=== PATIENT | female | born 1935 | race Asian ===

== ENCOUNTER 2021-04-29 12:07 | Inpatient (IN) | payer MEDICAID ==
[~2021-04-29] VITALS: Ht 137.2 cm; Wt 47.8 kg
[2021-04-29 12:18] VITALS: BP 125/56
[2021-04-29] MEDS ORDERED: NAPROSYN500 M1 PO (12:23)
[2021-04-29] MEDS ORDERED: OMEPRAZOLE40 MG PO (12:24)
[2021-04-29] MEDS ORDERED: ZESTRIL40 MG PO (12:24)
[2021-04-29] MEDS ORDERED: CHILDREN'S ASPI81 MG PO (12:24)
[2021-04-29] MEDS ORDERED: NEURONTIN300 MG PO (12:24)
[2021-04-29] MEDS ORDERED: VITAMIN D250 MCG PO (12:25)
[2021-04-29] MEDS ORDERED: DILTIAZEM ER300 M2 PO (12:25)
[2021-04-29] MEDS ORDERED: LIPITOR 40 MG T40 M1 PO (12:25)
[2021-04-29 13:07] LABS: ABSOLUTE LYMPHOCYTES 1.5 thou/uL (0.8-5.3); ABSOLUTE MONOCYTES 0.5 thou/uL (0.0-1.2); ABSOLUTE NEUTROPHILS 4.8 thou/uL (1.6-8.1); BASOPHILS 0.5 %; EOSINOPHILS 0.1 %; HEMATOCRIT 41.1 % (37.0-47.0); HEMOGLOBIN 14.5 gm/dL (12.0-15.0); LYMPHOCYTES 21.5 %; MCH 33.5 pg (26.0-34.0); MCHC 35.3 g/dL (28.0-37.0); MCV 94.8 fL (80.0-100.0); MONOCYTES 7.8 %; MPV 6.6 fl. (7.2-11.1); NUCLEATED RBCS 0 /100WBC; PLATELET COUNT* 240 thou/uL (150-400); POLYS 70.1 %; RBC 4.33 mil/uL (4.20-5.00); RDW-CV 14.6 % (10.5-14.5); WBC 6.9 thou/uL (4.0-11.0)
[2021-04-29 13:15] LABS: CALCIUM 9.8 mg/dL (8.5-10.1); CREATININE 0.7 mg/dL (0.6-1.3); POTASSIUM 3.1 mmol/L (3.5-5.1)
[2021-04-29 13:20] LABS: ALBUMIN 3.7 g/dL (3.4-5.0); TOTAL BILIRUBIN 0.5 mg/dL (<0.1-1.0); TOTAL PROTEIN 7.2 g/dL (6.4-8.2)
[2021-04-29 16:15] VITALS: BP 130/61
--- NOTE | 2021-04-29 16:34 | EKG ---
[place] [address] ELECTROCARDIOGRAM REPORT Name: LIDIA PARKER Room: [address] ADM IN M.R.#: [id number] Admission: 04/29/21 Attend Phys: Armando Varela Discharge: Date of : 35 Date of Service: 04/29/21 1235 Report #: [id number] THIS REPORT FOR: //name// [facility] [place] ED Test Date: 2021-04-29 Test Time: 12:35:33 Pat Name: LIDIA PARKER Department: Room: [facility] Gender: F School Attendance Secretary: KHOI : 1935 Requested By: Dash Medina Order Number: [id number] MD: Ar Domingo Measurements Intervals [place] Rate: 77 P: -52 RI: 185 QRS: 24 QRSD: 83 T: 2 QT: 397 QTc: 450 Interpretive Statements Sinus or ectopic atrial rhythm Minimal ST depression, anterolateral leads Baseline wander in lead(s) V1 No previous ECG available for comparison Electronically Signed On 04-29-2021 16:34:18 CDT by Ar Domingo [email or web address] <ELECTRONICALLY SIGNED> By: Ar Domingo MD, [facility] 04/29/21 1634 1235 1235 Ar Domingo MD, [facility] /EPI
[2021-04-29 17:00] VITALS: BP 115/93
[2021-04-29 22:31] LABS: CHOLESTEROL 171 mg/dL (<200); HDL CHOLESTEROL 68 mg/dL (>40); LDL CHOLESTEROL 86 mg/dL (<100); TC:HDL 2.5 Ratio (Not establshd); TRIGLYCERIDE 85 mg/dL (<150); VLDL 17 mg/dL (<40)
[2021-04-29 22:33] LABS: SERUM ASSESSMENT Slight Lipemia
[2021-04-30 00:36] VITALS: BP 122/65
[2021-04-30 04:13] VITALS: BP 129/61
[2021-04-30 04:46] LABS: HEMATOCRIT 39.7 % (37.0-47.0); HEMOGLOBIN 13.7 gm/dL (12.0-15.0); MCH 33.6 pg (26.0-34.0); MCHC 34.7 g/dL (28.0-37.0); MCV 96.9 fL (80.0-100.0); MPV 6.7 fl. (7.2-11.1); RBC 4.09 mil/uL (4.20-5.00); RDW-CV 14.4 % (10.5-14.5); WBC 5.6 thou/uL (4.0-11.0)
[2021-04-30 04:55] LABS: CALCIUM 8.7 mg/dL (8.5-10.1); CREATININE 0.5 mg/dL (0.6-1.3)
[2021-04-30 05:06] LABS: APTT 24.4 Seconds (25.0-31.3); INR 0.9; PROTIME 9.9 Seconds (9.20-11.50)
[2021-04-30 08:00] VITALS: BP 138/72
[2021-04-30 12:00] VITALS: BP 147/78
--- NOTE | 2021-04-30 13:23 | 2DMMODE ---
[place] [address] 2 D/M-MODE ECHOCARDIOGRAM Name: LIDIA PAKRER Room: [address] IN [facility]#: [id number] Admission: 04/29/21 Attend Phys: Armando Varela Discharge: Date of : 35 Date of Service: 04/30/21 1323 Report #: [id number] THIS REPORT FOR: cc: Physician not on staff Physician not on staff Ar Domingo MD [facility] ~ APPROVED REPORT Study performed: 04/30/2021 11:52:50 EXAM: Comprehensive 2D, Doppler, and color-flow Echocardiogram Patient Location: In-Patient Room #: [facility] Status: routine BSA: 1.36 HR: 74 bpm BP: 129/61 mmHg Rhythm: NSR Other Information Study Quality: Good Indications CVA/TIA Echo Enhancing Agent Indication: Rule out Shunt Agent(s) / Amount(s) Used: Agitated Saline 10 cc 2D Dimensions IVSd: 8.49 (7-11mm) LVOT Diam: 17.26 (18-24mm) LVDd: 46.46 mm PWd: 8.81 (7-11mm) Ascending Ao: 32.56 (22-36mm) LVDs: 30.86 (25-40mm) Aortic Root: 32.70 mm Volumes Left Atrial Volume (Systole) LA ESV Index: 22.20 mL/m2 Aortic Valve AoV Peak Rich.: 2.12 m/s AO Peak Gr.: 17.95 mmHg LVOT Max P.05 mmHg AO Mean Gr.: 10.36 mmHg LVOT Mean P.66 [place] [address] 2 D/M-MODE ECHOCARDIOGRAM Name: LIDIA PARKER KATIE Room: [address] IN [facility]#: [id number] Admission: 04/29/21 Attend Phys: Armando Varela Discharge: Date of : 35 Date of Service: 04/30/21 1323 Report #: [id number] LVOT Max V: 2.24 m/s AO V2 VTI: 48.32 cm LVOT Mean V: 1.60 m/s AMEE (VTI): 2.09 cm2 LVOT V1 VTI: 43.09 cm AI [place]: 2.66 m/s2 AI PHT: 462.86 ms Mitral Valve MV Mean Gr.: 4.36 mmHg MV [place]. Time: 337.76 ms MV PHT: 97.95 ms MVA (PHT): 2.25 cm2 TDI Medial E' Rich.: 0.06 m/s Lateral E' Rich.: 0.06 m/s Pulmonary Valve PV Peak Rich.: 1.14 m/s PV Peak Gr.: 5.22 mmHg Tricuspid Valve RAP Estimate: 5.00 mmHg TR Peak Gr.: 24.02 mmHg RVSP: 29.00 mmHg PA Pressure: 29.00 mmHg Left Ventricle The left ventricle is normal size. There is normal LV segmental wall motion. There is normal left ventricular wall thickness. Left ventricular systolic function is normal. The left ventricular ejection fraction is within the normal range. LVEF is 65%. Grade I - abnormal relaxation pattern. Right Ventricle The right ventricle is normal size. The right ventricular systolic function is normal. Atria The left atrium size is normal. The interatrial septum is intact with no evidence for an atrial septal defect. The right atrium size is normal. Aortic Valve Mild aortic valve sclerosis. Mild to moderate aortic regurgitation. Mild aortic stenosis. Mitral Valve There is mitral annular calcification. There [place] [address] 2 D/M-MODE ECHOCARDIOGRAM Name: LIDIA PARKER Room: [address]#: [id number] Admission: 04/29/21 Attend Phys: Armando Varela Discharge: Date of : 35 Date of Service: 04/30/21 1323 Report #: [id number] regurgitation noted. No evidence of mitral valve stenosis. Tricuspid Valve The tricuspid valve is normal in structure. Mild tricuspid regurgitation. No pulmonary hypertension. Pulmonic Valve The pulmonary valve is normal in structure. There is no pulmonic valvular regurgitation. Great Vessels The aortic root is normal in size. IVC is normal in size and collapses >50% with inspiration. Pericardium There is no pericardial effusion. <Conclusion> The left ventricle is normal size. There is normal left ventricular wall thickness. Left ventricular systolic function is normal. The left ventricular ejection fraction is within the normal range. LVEF is 65%. Grade I - abnormal relaxation pattern. The right ventricle is normal size. The left atrium size is normal. Mild aortic valve sclerosis. Mild to moderate aortic regurgitation. Mild aortic stenosis. The tricuspid valve is normal in structure. Mild tricuspid regurgitation. No pulmonary hypertension. IVC is normal in size and collapses >50% with inspiration. There is no pericardial effusion. There is normal LV segmental wall motion. The interatrial septum is intact with no evidence for an atrial septal defect. There is mitral annular calcification. There is no mitral valve regurgitation noted. <ELECTRONICALLY SIGNED> By: Ar Domingo MD, FACC 04/30/21 1323 1323 132 Ar Domingo MD, FACC /INF
[2021-04-30 15:53] VITALS: BP 147/78
== END 2021-04-30 16:35 | disposition home or self-care (01) | DRG 305 ==
LOC: M.ERS 12:07 → M.TBA-ER 14:19 → M.2W 16:18
PROVIDERS: Emergency Medicine Emergency Medical Services; Internal Medicine; ADMIT Internal Medicine; ATTEND Internal Medicine
DX: I16.0 Hypertensive urgency (principal); I10 Essential (primary) hypertension; E78.5 Hyperlipidemia, unspecified; I48.91 Unspecified atrial fibrillation; G62.9 Polyneuropathy, unspecified; F41.9 Anxiety disorder, unspecified; Z20.822 Contact with and (suspected) exposure to COVID-19; F43.9 Reaction to severe stress, unspecified; Z86.73 Personal history of transient ischemic attack (TIA), and cerebral infarction without residual deficits; Z79.899 Other long term (current) drug therapy

== ENCOUNTER 2021-12-25 15:44 | Emergency (ER) | payer MEDICAID ==
[~2021-12-25] VITALS: Ht 149.9 cm; Wt 49.9 kg
[~2021-12-25 15:44] MED LIST: CHILDREN'S ASPI81 MG PO; DILTIAZEM ER300 M2 PO; LIPITOR 40 MG T40 M1 PO; NAPROSYN500 M1 PO; NEURONTIN300 MG PO; OMEPRAZOLE40 MG PO; VITAMIN D250 MCG PO; ZESTRIL40 MG PO
[2021-12-25 19:34] LABS: HEMATOCRIT 42.7 % (37.0-47.0); HEMOGLOBIN 14.4 gm/dL (12.0-15.0); MCH 32.6 pg (26.0-34.0); MCHC 33.7 g/dL (28.0-37.0); MCV 96.5 fL (80.0-100.0); MPV 6.8 fl. (7.2-11.1); RBC 4.42 mil/uL (4.20-5.00); RDW-CV 15.2 % (10.5-14.5); WBC 7.2 thou/uL (4.0-11.0)
[2021-12-25 19:37] LABS: CALCIUM 9.5 mg/dL (8.5-10.1); CREATININE 0.6 mg/dL (0.6-1.3); POTASSIUM 3.3 mmol/L (3.5-5.1)
[2021-12-25 19:42] LABS: ALBUMIN 3.6 g/dL (3.4-5.0); TOTAL BILIRUBIN 0.7 mg/dL (<0.1-1.0); TOTAL PROTEIN 6.7 g/dL (6.4-8.2)
[2021-12-25 22:00] LABS: URINE BILIRUBIN NEGATIVE (Negative); URINE BLOOD NEGATIVE (Negative); URINE CLARITY CLEAR; URINE COLOR YELLOW; URINE GLUCOSE-RANDOM NEGATIVE (Negative); URINE KETONES NEGATIVE (Negative); URINE LEUKOCYTES-REFLEX NEGATIVE (Negative); URINE NITRITE-REFLEX NEGATIVE (Negative); URINE PROTEIN NEGATIVE (Negative); URINE UROBILINOGEN 0.2 E.U./dl (0.2-1.0)
[2021-12-25 22:17] VITALS: BP 157/71
== END 2021-12-25 22:17 | disposition short-term general hospital (02) ==
LOC: M.ERS 15:44
PROVIDERS: Student in an Organized Health Care Education/Training Program
DX: S22.089A Unspecified fracture of T11-T12 vertebra, initial encounter for closed fracture (principal); Z20.822 Contact with and (suspected) exposure to COVID-19; S32.039A Unspecified fracture of third lumbar vertebra, initial encounter for closed fracture; R10.30 Lower abdominal pain, unspecified; R32 Unspecified urinary incontinence; R93.89 Abnormal findings on diagnostic imaging of other specified body structures; R20.2 Paresthesia of skin; I10 Essential (primary) hypertension; Z86.73 Personal history of transient ischemic attack (TIA), and cerebral infarction without residual deficits; Z79.82 Long term (current) use of aspirin; Z79.899 Other long term (current) drug therapy; W19.XXXA Unspecified fall, initial encounter; Y93.89 Activity, other specified; Y92.89 Other specified places as the place of occurrence of the external cause; Y99.8 Other external cause status